=== PATIENT | female | born 1990 | race African-American/Black ===

== ENCOUNTER 2020-04-05 08:12 | Emergency (ER) | payer SELFPAY ==
[~2020-04-05] VITALS: Ht 162.6 cm; Wt 63.5 kg
[2020-04-05 08:25] VITALS: BP 101/61
--- NOTE | 2020-04-05 08:25 | NUR ---
TO [facility]
--- NOTE | 2020-04-05 09:00 | NUR ---
SEEN AND EXAMINED BY FLAQUITA, WITH ORDER, CARRIED OUT
--- NOTE | 2020-04-05 09:12 | NUR ---
Covid swab collected and walked to lab.
[2020-04-05 11:20] VITALS: BP 101/61
--- NOTE | 2020-04-05 11:20 | NUR ---
Patient discharged with v/s stable. Written and verbal after care instructions given and explained. Patient alert, oriented and verbalized understanding of instructions. Ambulatory with steady gait. All questions addressed prior to discharge. ID band removed. Patient advised to follow up with PMD. Rx of CODEINE given. Patient educated on indication of medication including possible reaction and side effects. Opportunity to ask questions provided and answered.
--- NOTE | 2020-04-08 13:17 | NUR ---
+ covid result received from lab. Copy given to infection control
== END 2020-04-05 11:20 | disposition home or self-care (01) ==
LOC: MED 08:12
DX: R05 Cough (principal)
CPT/HCPCS: 99283; U0003